=== PATIENT | female | born 1980 | race Caucasian/White ===

== ENCOUNTER 2018-01-22 05:13 | Day surgery (SDC) | payer BC, OTHER ==
[~2018-01-22] VITALS: Ht 162.6 cm; Wt 66.1 kg
[2018-01-22] MEDS ORDERED: LACTATED RINGERS 1,000 ML IV SCH (05:43)
[2018-01-22] MEDS ORDERED: INSULIN PUMP SQ (05:49)
[2018-01-22 05:51] VITALS: BP 107/67
[2018-01-22 05:55] LABS: HCG UR SG 1.023 (1.003-1.030)
[2018-01-22] MEDS ORDERED: PLEASE ENTER HEIGHT AND WEIGHT MC SCH (06:00)
[2018-01-22] MEDS ORDERED: LIDOCAINE/PF 1%-EPI 1:200K, 30 ML ONE (06:16)
[2018-01-22] MEDS ORDERED: ROPIvacaine/PF 0.5%, 30 ML ONE (06:16)
[2018-01-22] MEDS ORDERED: FENTANYL PF 250 MCG/5ML ONE (06:21)
[2018-01-22] MEDS ORDERED: MIDAZOLAM 1 MG/ML, 2ML ONE (06:21)
[2018-01-22] MEDS ORDERED: PROPOFOL 10 MG/ML, 20ML ONE (06:22)
[2018-01-22] MEDS ORDERED: DEXAMETHASONE 4 MG/ML, 1ML ONE ×2 (06:22)
[2018-01-22] MEDS ORDERED: CEFAZOLIN 1,000 MG ONE ×2 (06:23)
[2018-01-22] MEDS ORDERED: ONDANSETRON 2MG/ML, 2ML ONE (06:23)
[2018-01-22] MEDS ORDERED: SODIUM CHLORIDE 0.9% PF 10ML ONE (06:23)
[2018-01-22 06:29] LABS: ALANINE AMINOTRANSFERASE 23 U/L (12-78); ALBUMIN 3.6 g/dL (3.4-5.0); ANION GAP 8 mmol/L (5-15); CALCIUM 8.1 mg/dL (8.5-10.1); CHLORIDE 111 mmol/L (98-107); CREATININE 0.74 mg/dL (0.55-1.02)
[2018-01-22 06:32] LABS: ALKALINE PHOSPHATASE 59 U/L (45-117); BILIRUBIN,TOTAL 0.9 mg/dL (0.2-1.0); TOTAL PROTEIN 6.6 g/dL (6.4-8.2)
[2018-01-22] MEDS ORDERED: ONDANSETRON ODT 8 MG PO PRN (07:00)
[2018-01-22] MEDS ORDERED: PROMETHAZINE 12.5 MG SUPP PR PRN (07:00)
[2018-01-22] MEDS ORDERED: FENTANYL PF 100 MCG/2ML IV PRN (07:00)
[2018-01-22] MEDS ORDERED: MORPHINE SULFATE 4 MG/ML, 1ML IVPush PRN (07:00)
[2018-01-22] MEDS ORDERED: HYDROmorphone 2 MG/ML, 1ML IVPush PRN (07:00)
[2018-01-22] MEDS ORDERED: MEPERIDINE/PF 25MG/0.5ML IVPush PRN (07:00)
[2018-01-22] MEDS ORDERED: PROMETHAZINE 25 MG SUPP PR PRN (07:00)
[2018-01-22] MEDS ORDERED: hydrALAzine 20 MG/ML, 1ML IV PRN (07:00)
[2018-01-22] MEDS ORDERED: HALOPERIDOL 5 MG/ML IV PRN (07:00)
[2018-01-22] MEDS ORDERED: PROMETHAZINE 25 MG/ML, 1ML IV PRN (07:00)
[2018-01-22] MEDS ORDERED: LABETALOL 5MG/ML, 20ML IV PRN (07:00)
[2018-01-22] MEDS ORDERED: ONDANSETRON 2MG/ML, 2ML IV PRN (07:00)
[2018-01-22] MEDS ORDERED: OXYcodone 5 MG/5 ML ORAL.SOL UDC PO PRN (07:00)
[2018-01-22] MEDS ORDERED: PROMETHAZINE 25 MG/ML, 1ML IM PRN ×2 (07:00)
[2018-01-22] MEDS ORDERED: KETOROLAC 30 MG/1 ML ONE (07:03)
[2018-01-22] MEDS ORDERED: ACETAMINOPHEN 325 MG TABLET PO PRN (08:00)
[2018-01-22] MEDS ORDERED: ACETAMINOPHEN 325 MG TABLET ONE (08:02)
== END 2018-01-22 09:30 | disposition home or self-care (01) ==
LOC: OUT 05:13
PROVIDERS: ATTEND Orthopaedic Surgery
DX: S83.241A Other tear of medial meniscus, current injury, right knee, initial encounter (principal); M65.861 Other synovitis and tenosynovitis, right lower leg; E11.9 Type 2 diabetes mellitus without complications; X58.XXXA Exposure to other specified factors, initial encounter; Y93.89 Activity, other specified; Y92.89 Other specified places as the place of occurrence of the external cause; Y99.8 Other external cause status; Z79.899 Other long term (current) drug therapy; Z72.89 Other problems related to lifestyle
CPT/HCPCS: 29881; 36415; 80053; 81025; 82962; 93005; J0690; J1100; J1885; J2250; J2405; J2704; J2795; J3010; J3490; J7120